=== PATIENT | male | born 1995 | race Caucasian/White ===

== ENCOUNTER 2021-05-03 10:14 | Emergency (ER) | payer BC, OTHER ==
[2021-05-03] MEDS ORDERED: Bupivacaine 0.5% 10 ML SDV INJECT ONE (10:42)
[2021-05-03] MEDS ORDERED: Ondansetron 4 MG/2 ML SDV IVPUSH ONE (11:18)
[2021-05-03] MEDS ORDERED: Morphine 10 MG/ML SDV IVPUSH ONE ×2 (11:18→13:09)
--- NOTE | 2021-05-03 12:23 | EDM.PDOC ---
ED HPI GENERAL MEDICAL PROBLEM - General Chief Complaint: Upper Extremity Injury/Pain Stated Complaint: fall, right arm injury Time Seen by Provider: 05/03/21 10:42 Source of Information: Reports: Patient, EMS History Limitations: Reports: No Limitations - History of Present Illness INITIAL COMMENTS - FREE TEXT/NARRATIVE: Patient fell while coming down ladder. 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 Fell 3- 4 feet. No loc. Did land on right arm and has severe right arm pain humerus. No numbness/tingling/color change distal to injury. Denies other injuries. Did not hit head/no loc. Right Upper Arm Pain Score (Numeric/FACES): 8 - Related Data Allergies Allergy/AdvReac Type Severity Reaction Status Date / Time No Known Allergies Allergy Verified 05/03/21 10:21 Home Meds: Home Meds traMADol HCl [Tramadol HCl] 50 mg PO Q6H PRN #24 tablet 05/03/21 [Rx] Past Medical History HEENT History: Reports: Impaired Vision Musculoskeletal History: Reports: Other (See Below) Other Musculoskeletal History: clavicle fx 2009 Social & Family History - Tobacco Use Tobacco Use Status *Q: Current Every Day Tobacco User Years of Tobacco use: 4 Packs/Tins Daily: 0.1 - Recreational Drug Use Recreational Drug Use: No Review of Systems - Review of Systems Review Of Systems: See Below Musculoskeletal: Reports: Other (right upper arm pain) ED EXAM, GENERAL - Physical Exam Exam: See Below Exam Limited By: No Limitations General Appearance: Alert, Moderate Distress, Obese Eye Exam: Bilateral Eye: EOMI, PERRL Ears: Normal External Exam, Hearing Grossly Normal Nose: No: Nasal Deformity, Nasal Swelling, Nasal Drainage Throat/Mouth: Normal Lips, Normal Voice, No Airway Compromise Head: Atraumatic, Normocephalic Neck: Supple, Non-Tender, Full Range of Motion Respiratory/Chest: No Respiratory Distress, Lungs Clear, Normal Breath Sounds, No Accessory Muscle Use, Chest Non-Tender Cardiovascular: Normal Peripheral Pulses, Regular Rate, Rhythm, No Murmur GI/Abdominal: Soft, Non-Tender, Pelvis Stable (Male) Exam: Deferred Rectal (Males) Exam: Deferred Back Exam: No: CVA Tenderness (L), CVA Tenderness (R), Muscle Spasm Extremities: Normal Capillary Refill, Other (Tender right humerus/mid shaft with obvious swelling and deformity. Elbow/right forearm and hand nontender. Good cap refill. Sensation intact. ) Psychiatric: Anxious Skin Exam: Warm, Dry, Intact, Normal Color ED TRAUMA EXTREMITY PROCEDURES - Splinting Right Upper Extremity Splint Site: Right upper arm Pre-Procedure NV Status: Normal Post-Procedure NV Status: Normal Splint Material: Fiberglass Splint Design: Other (Coaptation splint) Applied & Form Fitted By: Provider Provider Post-Splint Application NV Check: NV Status Normal, Good Position Complications: No Progress/Comments: Fracture reduction attempted prior to placement of splint. Course - Vital Signs Last Recorded V/S: Last Vital Signs Temp 36.4 C 05/03/21 10:23 Pulse 96 05/03/21 10:23 Resp 18 05/03/21 10:23 BP 146/91 H 05/03/21 10:23 Pulse Ox 98 05/03/21 10:23 - Orders/Labs/Meds Orders: Active Orders 24 hr Category Date Time Status Humerus Rt [CR] Stat Exams 05/03/21 10:21 Taken Humerus Rt [CR] Stat Exams 05/03/21 12:15 Taken UA W/MICROSCOPIC [URIN] Stat Lab 05/03/21 10:22 Ordered Labs: Laboratory Tests 05/03/21 Range/Units 10:30 WBC 10.3 H (4.0-10.2) K/uL RBC 4.97 (4.33-5.41) M/uL Hgb 14.3 (13.1-16.8) g/dL Hct 41.7 (39.0-49.0) % MCV 83.9 L (84.0-98.0) fL MCH 28.8 (28.2-33.3) pg MCHC 34.3 (31.7-36.0) g/dL RDW 12.6 (11.2-14.1) % Plt Count 230 (150-350) K/uL Neut % (Auto) 65.1 (45.0-80.0) % Lymph % (Auto) 26.7 (10.0-50.0) % [place] % (Auto) 6.4 (2.0-14.0) % Eos % (Auto) 1.6 (0.0-5.0) % Baso % (Auto) 0.2 (0.0-2.0) % Neut # (Auto) 6.71 (1.40-7.00) K/uL Lymph # (Auto) 2.76 (0.50-3.50) K/uL [place] # (Auto) 0.66 (0.00-1.00) K/uL Eos # (Auto) 0.17 (0.00-0.50) K/uL Baso # (Auto) 0.02 (0.00-0.20) K/uL Meds: Medications Discontinued Medications Generic Name Dose Route Start Last Admin Trade Name Kayy PRN Reason Stop Dose Admin Bupivacaine HCl 10 ml 05/03/21 10:42 05/03/21 10:47 Bupivacaine 0.5% 10 Ml Sdv INJECT 05/03/21 10:43 10 ml ONETIME ONE Administration Lidocaine HCl 5 ml 05/03/21 10:42 05/03/21 10:47 Lidocaine 1% 5 Ml Sdv INJECT 05/03/21 10:43 5 ml ONETIME ONE Administration Morphine Sulfate 6 mg 05/03/21 11:18 05/03/21 11:33 Morphine 10 Mg/Ml Sdv IVPUSH 05/03/21 11:19 6 mg ONETIME ONE Administration Ondansetron HCl 4 mg 05/03/21 11:18 05/03/21 11:33 Ondansetron 4 Mg/2 Ml Sdv IVPUSH 05/03/21 11:19 4 mg ONETIME ONE Administration - Radiology Interpretation Free Text/Narrative:: Xray confirms midshaft fracture of humerus. - Re-Assessments/Exams Free Text/Narrative Re-Assessment/Exam: 05/03/21 12:24 Attempt at hematoma block. Patient's body habitus/very large arms made it difficult to get Marcaine .5% 9cc mixed with 1% Lidocaine 1cc down into the actual fracture. Patient did have some pain relief from the block however. IV access obtained. MS and Stef given. [facility] contacted and xray reviewed by . He recommended splinting/arm sling and at this time we are waiting to hear back from [facility] regarding if they will try to schedule patient for surgery tomorrow or Thursday. 05/03/21 13:08 Patient to be called over weekend by [facility] and time for Thursday surgery/pre-op plans will be discussed with patient at that time. Patient much more comfortable. Will discharge home with Tramadol. PRN Tylenol/Ibuprofen as needed. Departure - Departure Time of Disposition: 13:09 Disposition: Home, Self-Care 01 Condition: Good Clinical Impression: Fracture of humerus Qualifiers: Encounter type: initial encounter Humerus Location: shaft Fracture type: closed Fracture morphology: unspecified fracture morphology Laterality: right Qualified Code(s): S42.301A - Unspecified fracture of shaft of humerus, right arm, initial encounter for closed fracture - Discharge Information *PRESCRIPTION DRUG MONITORING PROGRAM REVIEWED*: Not Applicable *COPY OF PRESCRIPTION DRUG MONITORING REPORT IN PATIENT MIHAELA: Not Applicable Prescriptions: traMADol HCl [Tramadol HCl] 50 mg PO Q6H PRN #24 tablet PRN Reason: Pain Instructions: Humerus Fracture Treated With Immobilization Referrals: PCP,None [Primary Care Provider] - Forms: ED Department Discharge Additional Instructions: Take it easy over the weekend. Stay hydrated (water). Tylenol and/or Aleve as needed for pain in addition to the Tramadol that you were prescribed. [facility] contact you over the weekend in regards to planning for surgery on Thursday. If you do not hear from them by Thursday at 5pm please give us a call. Follow up otherwise as needed. Sepsis Event Note (ED) - Evaluation Sepsis Screening Result: No Definite Risk - Focused Exam Vital Signs: Vital Signs Temp Pulse Resp BP Pulse Ox 05/03/21 10:23 36.4 C 96 18 146/91 H 98 - My Orders Last 24 Hours: My Active Orders 05/03/21 10:21 Humerus Rt [CR] Stat 05/03/21 10:22 UA W/MICROSCOPIC [URIN] Stat 05/03/21 12:15 Humerus Rt [CR] Stat - Assessment/Plan Last 24 Hours: My Active Orders 05/03/21 10:21 Humerus Rt [CR] Stat 05/03/21 10:22 UA W/MICROSCOPIC [URIN] Stat 05/03/21 12:15 Humerus Rt [CR] Stat
== END 2021-05-03 13:38 | disposition home or self-care (01) ==
LOC: LL.ED 10:14
DX: S42.301A Unspecified fracture of shaft of humerus, right arm, initial encounter for closed fracture (principal); Z72.0 Tobacco use; W11.XXXA Fall on and from ladder, initial encounter
CPT/HCPCS: 29105; 29125; 36415; 73060-RT; 85025; 96374; 96375; 96376; 99283; 99284-25; J2270; J2405; J3490